=== PATIENT | male | born 1970 | race Caucasian/White ===

== ENCOUNTER → 2016-12-09 | Outpatient (CLI) | payer BC ==
[2016-12-09 15:22] LABS: ALT/SGPT 31 U/L (12-78); AST/SGOT 28 U/L (15-37); BLOOD UREA NITROGEN 12 mg/dl (7-18); BUN/CREATININE RATIO 12.2 (10-20); CALCIUM 9.1 mg/dl (8.5-10.1); CARBON DIOXIDE 24 mmol/L (21-32); CHLORIDE 105 mmol/L (98-107); CHOLESTEROL 226 mg/dl (0-200); CREATININE 0.94 mg/dl (0.60-1.40); GLUCOSE 148 mg/dl (70-99); POTASSIUM 3.8 mmol/L (3.5-5.1); SODIUM 140 mmol/L (136-145); TRIGLYCERIDES 472 mg/dl (0-150)
[2016-12-09 15:31] LABS: ALB/GLOB RATIO 1.5 (0.9-2); ALKALINE PHOSPHATASE 95 U/L (45-117); CHOLESTEROL/HDL RATIO 7.1; HDL CHOLESTEROL 32 mg/dl
[2016-12-10 07:08] LABS: ESTIMATED AVERAGE GLUCOSE 143 mg/dl; HA1C FLAG Normal (Normal)
--- NOTE | 2016-12-18 09:46 | CODING QUERY MEDICAL NECESSITY ---
SUPPORTING DIAGNOSIS NEEDED Mary YANG, A supporting diagnosis is required for the test/procedure performed on this patient in order for us to be reimbursed by the patient's insurance. Please provide a supporting diagnosis for the following test/procedure listed below next to the test name along with your signature. *If there is no additional diagnosis for this patient that would support the following test/procedure please document that below next to the test/procedure. Test(s)/Procedure(s) that require a supporting diagnosis: * ([id number]) VITAMIN D ASSAY DIAGNOSIS: DATE OF SERVICE: 12/09/16 Provider Signature: Date: Thank you [facility] Information Management Once completed, please kindly fax back to [phone] For questions please call [phone]
== END | disposition home or self-care (01) ==
LOC: C.LAB1850 13:34
PROVIDERS: ATTEND Physician Assistant
DX: E03.9 Hypothyroidism, unspecified (principal); E10.65 Type 1 diabetes mellitus with hyperglycemia; E55.9 Vitamin D deficiency, unspecified

== ENCOUNTER 2023-02-02 17:05 | Inpatient (IN) ==
[2023-02-02] MEDS ORDERED: SODIUM CHLORIDE 0.9% 1,000 ML IV SCH (17:30)
--- NOTE | 2023-02-02 17:48 | XRay Report ---
XR chest 1V portable CLINICAL HISTORY: weakness COMPARISON STUDY: No previous studies for comparison. FINDINGS: Lung volumes are normal. Lungs are clear. There is no pneumothorax or pleural effusion. Car diac size is normal. Mediastinal contours are normal. There is no evidence for pulmonary edema. IMPRESSION: No acute cardiopulmonary findings. ACT 112: Negative or not required by law. Electronically signed by: Ebenezer Blackwood M.D. 02/02/2023 5:47 PM
[2023-02-02 18:13] LABS: Basophils # (auto) 0.02 K/uL (0.00-0.20); Basophils % (auto) 0.5 %; Eosinophils # (auto) 0.05 K/uL (0.00-0.50); Eosinophils % (auto) 1.1 %; Hematocrit (blood only) 35.4 % (42.0-52.0); Hemoglobin 12.3 g/dl (14.0-18.0); Immature Granulocytes # (auto) 0.08 K/uL (0.01-0.20); Immature Granulocytes % (auto) 1.8 %; Lymphocytes # (auto) 0.95 K/uL (1.20-3.40); Lymphocytes % (auto) 21.6 %; Mean Corpuscular Hemoglobin 35.2 pg (25.0-34.0); Mean Corpuscular Hgb Conc 34.7 g/dL (32.0-36.0); Mean Corpuscular Volume 101.4 fL (80.0-100.0); Mean Platelet Volume 10.5 fL (9.4-12.4); Monocytes # (auto) 0.47 K/uL (0.11-0.59); Monocytes % (auto) 10.7 %; Neutrophils # (auto) 2.83 K/uL (1.40-6.50); Neutrophils % (auto) 64.3 %; Platelet Count 266 K/uL (130-400); RDW Coefficient of Variation 14.6 % (11.5-14.5); RDW Standard Deviation 54.2 fL (36.4-46.3); Red Blood Count 3.49 M/uL (4.70-6.10)
[2023-02-02 18:28] LABS: Albumin Globulin Ratio 1.4 (0.9-2); Albumin Level 4.1 gm/dl (3.4-5.0); BUN Creatinine Ratio 9.5 (10-20); Bilirubin,Total 1.3 mg/dl (0.2-1.0); Creatinine Clr Calc Pharmacy 128.3 ml/min; Est GFR (Non-African American) 99.3 ml/min; Magnesium 2.1 mg/dl (1.7-2.4); Total Protein 7.1 gm/dl (6.0-8.3)
[2023-02-02 18:44] LABS: Thyroid Stimulating Hormone 0.129 uIu/ml (0.300-4.500)
--- NOTE | 2023-02-02 19:16 | Emergency Department Note ---
Impression & Plan Generalized seizure ED Provider Note NAME: TARA VELARDE AGE: 52 SEX: Male INFORMANT: Patient and family ED PROVIDER(S): Darek Mclaughlin MD CHIEF COMPLAINT: Seizure PLAN: Disposition: Admitted Outpatient prescription management: none Referral: None MEDICAL DECISION MAKING: Patient had what sounds like a seizure-like episode. He was placed in seizure precautions. Blood work and imaging ordered. His CBC and chemistry panel were unremarkable. I did review his imaging from yesterday. CT and CT angiography were unremarkable. ED physician yesterday recommended admission however patient declined. He was ordered CT imaging here today. He had a nonfocal neurologic examination. I did consult with neurology, Dr. Zhou and he recommended an IV Keppra load. He agreed with admitting the patient and getting an MRI and EEG with neurology consult for tomorrow. Discussed with hospital pharmacist. Patient was given 2 g of IV Keppra. He was also hydrated. Consultation was made with the hospitalist service. Case discussed and diagnostics were reviewed. Patient was admitted for further management. Care/management discussed with: Discussed with hospital pharmacist as well as manager transplant. Level of care consideration(s): After review of the information above and other included data, I feel the patient requires escalation of care to admission Triage Nursing notes: reviewed and agree them. Vital Signs: reviewed and remarkable for no significant abnormalities Additional History obtained from: Family. They describe a generalized tonic- clonic like activity. Chronic Medical/Social Conditions affecting care: Diabetes Prior/ Outside/ External records reviewed: none Differential Diagnosis: Epilepsy, infection, hypoglycemia, electrolyte abnormalities, cardiac sources, intracerebral event, trauma, toxicologic, neurologic, syncope, as well as other pathologies. Diagnostics, independently interpreted by me: ECG: twelve-lead ECG reveals a normal sinus rhythm at [address] elevation or depression. No PACs or PVCs Cardiac Monitoring: Cardiac monitoring ordered by me: The patient was placed on continuous cardiac monitoring and observed. It revealed a normal sinus rhythm at 83 beats per minute without ectopy or evidence of dysrhythmia. Medical decision rules: none Imaging studies: Head CT: A noncontrast CT scan of the head was performed and was negative for tumor, fracture, intracranial hemorrhage, or other acute pathology. HPI: 52 year old Male arrives for evaluation of seizure-like episode. Per the family patient had a shaking episode earlier this morning. But the patient does not remember this. He then had an episode of shaking this evening. Exact duration was not noted by family. He did have about 5 to 10 minutes of confusion afterwards. Patient feels back to normal at this time. He was seen yesterday and had an evaluation for right-sided weakness that resolved. CT work-up at that time was negative. He was recommended for admission and further evaluation however patient declined. Patient is agreeable to admission at this time. Pt denies tongue biting, incontinence, headache, fevers, chills, diaphoresis, visual changes, neck pain, chest pain, breathing difficulties, nausea, vomiting, abdominal pain, back pain, melena, hematochezia, urinary symptoms, numbness, weakness, lymphadenopathy, rash, or other complaints. PAST MEDICAL HISTORY: See Below, diabetes PAST SURGICAL HISTORY: See Below, SOCIAL HISTORY: See Below, non-smoker HOME MEDICATIONS: See Below ALLERGIES: See Below VITALS: See Below PHYSICAL EXAMINATION: GENERAL: Awake, alert, well-appearing, in no distress HENT: Normocephalic, atraumatic. Oropharynx unremarkable. Tongue normal. EYES: Normal conjunctiva. Sclera non-icteric.PERRLA. EOMI. NECK: Inspection normal. Non-tender. Supple. No nuchal rigidity. FROM. No masses. RESPIRATORY: Clear to auscultation. No wheezes. No rales. Normal respiratory effort. CARDIAC: Normal rate. Normal rhythm. No murmurs. No rubs. Extremities warm and well perfused. Pulses equal. No JVD. GI: Soft, non-distended. No tenderness to palpation. No rebound or guarding. No masses. RECTAL: Deferred. MUSCULOSKELETAL: Atraumatic. Chest examination reveals no tenderness. The back is symmetrical on inspection without obvious abnormality. There is no CVA tenderness to palpation. No joint edema. LOWER EXTREMITIES: Calves are equal size bilaterally and non-tender. No edema. No discoloration. NEURO: Normal sensorium. No sensory or motor deficits noted. Normal rapid alternating movements. No drift. Speech normal. SKIN: No rash or jaundice noted. PROCEDURES: none CRITICAL CARE: none OBSERVATION NOTE: none Past Med/Surg History Medical History Diabetes Social History Smoking Status: Never smoker Preferred Language: Colombian Feels Safe at Home: Yes Allergies Allergies Allergy/AdvReac Type Severity Reaction Status Date / Time No Known Allergies Allergy Intermediate Verified 09/07/03 09:20 Home Meds Home Medications Medication Instructions Recorded Confirmed atorvastatin 20 mg tablet 20 mg PO DAILY 02/01/23 02/01/23 cimetidine 400 mg tablet 400 mg PO BID PRN Heartburn 02/01/23 02/01/23 insulin glargine 100 unit/mL (3 0 - 80 unit subcut HS 02/01/23 02/01/23 mL) subcutaneous pen (Lantus Solostar U-100 Insulin) insulin glulisine U-100 100 1 sliding scale dose subcut UD 02/01/23 02/01/23 unit/mL subcutaneous pen (Apidra SoloStar U-100 Insulin) levothyroxine 150 mcg tablet 150 mcg PO DAILYBB 02/01/23 02/01/23 (Synthroid) Previous Rx's Medication Instructions Recorded amoxicillin 875 mg-potassium 1 tab PO BID #20 tabs 02/01/23 clavulanate 125 mg tablet Results & Data (ED) Vital Signs Vital Signs - 24 hr 02/02/23 17:11 02/02/23 18:24 Temperature 36.9 C Temperature Source Oral Pulse Rate 82 83 Respiratory Rate 18 Respiratory Effort / Characteristics Non-Labored Spontaneous Respiratory Depth Normal Respiratory Pattern Regular Blood Pressure 139/81 Blood Pressure Mean 100 Pulse Oximetry 98 Oxygen Delivery Method Room Air Sepsis Recent Fever Within 48 Hours No Sepsis New/Unexplained Change in Mental Status N/A Sepsis Action Taken by Nursing No Action Required Laboratory Data 02/02/23 17:38 02/02/23 17:38 Lab Results 02/02/23 02/02/23 Range/Units 17:38 19:05 WBC 4.40 L (4.8-10.8) K/ul RBC 3.49 L (4.70-6.10) M/uL Hgb 12.3 L (14.0-18.0) g/dl Hct 35.4 L (42.0-52.0) % MCV 101.4 H (80.0-100.0) fL MCH 35.2 H (25.0-34.0) pg MCHC 34.7 (32.0-36.0) g/dL RDW Std Deviation 54.2 H (36.4-46.3) fL RDW Coeff of Molly 14.6 H (11.5-14.5) % Plt Count 266 (130-400) K/uL MPV 10.5 (9.4-12.4) fL Immature Gran % (Auto) 1.8 % Neut % (Auto) 64.3 % Lymph % (Auto) 21.6 % Floyd % (Auto) 10.7 % Eos % (Auto) 1.1 % Baso % (Auto) 0.5 % Neut # (Auto) 2.83 (1.40-6.50) K/uL Lymph # (Auto) 0.95 L (1.20-3.40) K/uL Floyd # (Auto) 0.47 (0.11-0.59) K/uL Eos # (Auto) 0.05 (0.00-0.50) K/uL Baso # (Auto) 0.02 (0.00-0.20) K/uL Immature Gran # (Auto) 0.08 (0.01-0.20) K/uL Sodium 139 (136-145) mmol/L Potassium 4.0 (3.5-5.1) mmol/L Chloride 107 (98-107) mmol/L Carbon Dioxide 24 (21-32) mmol/L Anion Gap 8 (3-11) BUN 8 (6-23) mg/dl Creatinine 0.84 (0.6-1.4) mg/dl Est Cr Clr Drug Dosing 128.3 ml/min Est GFR ( Amer) 115.0 ml/min Est GFR (Non-Af Amer) 99.3 ml/min BUN/Creatinine Ratio 9.5 L (10-20) Glucose 92 (70-99(Fasting)) mg/dl Calcium 9.0 (8.6-10.3) mg/dl Magnesium 2.1 (1.7-2.4) mg/dl Total Bilirubin 1.3 H (0.2-1.0) mg/dl AST 24 (13-39) U/L ALT 12 (7-52) U/L Alkaline Phosphatase 104 (34-104) U/L Total Creatine Kinase 155 (30-223) U/L Troponin I High Sens 8.0 (0-20) pg/ml Total Protein 7.1 (6.0-8.3) gm/dl Albumin 4.1 (3.4-5.0) gm/dl Globulin 3.0 (2.5-4.0) gm/dl Albumin/Globulin Ratio 1.4 (0.9-2) TSH 0.129 L (0.300-4.500) uIu/ml Free T4 1.31 (0.61-1.60) ng/dl Urine Color Yellow Urine Appearance Clear (Clear) Urine pH 5.5 (4.5-7.5) Ur Specific [place]rose 1.011 (1.000-1.030) Urine Protein Negative (Negative) Urine Glucose (UA) Negative (Negative) Urine Ketones Trace H (Negative) Urine Blood Negative (Negative) Urine Nitrite Negative (Negative) Urine Bilirubin Negative (Negative) Urine Urobilinogen Negative (Negative) Ur Leukocyte Esterase Negative (Negative) Administered Medications Sodium Chloride (Nss) 1,000 mls @ 125 mls/hr IV .Q8H LIZ Stop: 02/03/23 01:29 Last Admin: 02/02/23 19:08 Dose: 125 mls/hr Documented By: [facility] [place] Imaging Data Radiologist's Impression: Chest X-Ray 02/02/23 17:23 XR chest 1V portable CLINICAL HISTORY: weakness COMPARISON STUDY: No previous studies for comparison. FINDINGS: Lung volumes are normal. Lungs are clear. There is no pneumothorax or pleural effusion. Cardiac size is normal. Mediastinal contours are normal. There is no evidence for pulmonary edema. IMPRESSION: No acute cardiopulmonary findings. ACT 112: Negative or not required by law. Electronically signed by: Ebenezer Blackwood M.D. 02/02/2023 5:47 PM Discharge Plan Visit Data Chief Complaint: Seizure ED Provider: Darek Mclaughlin Discharge Problem: Generalized seizure Forms Stand Alone Forms: My [facility] [employer] Prescriptions Prescriptions: No Action levothyroxine [Synthroid] 150 mcg tablet 150 mcg PO DAILYBB insulin glargine [Lantus Solostar U-100 Insulin] 100 unit/mL (3 mL) insulin pen 0 - 80 unit SUBCUT HS Apidra SoloStar U-100 Insulin 100 unit/mL insulin pen 1 sliding scale dose SUBCUT UD Rx Instructions: up to 100 units daily cimetidine 400 mg tablet 400 mg PO BID PRN (Reason: Heartburn) atorvastatin 20 mg tablet 20 mg PO DAILY amoxicillin-pot clavulanate 875-125 mg tablet 1 tab PO BID Qty: 20 0RF Referrals Referrals: Rosalinda Alva MD [Primary Care Provider] -
[2023-02-02 19:20] LABS: T4 Free Thyroxine 1.31 ng/dl (0.61-1.60)
[2023-02-02 19:29] LABS: Appearance Urine Clear (Clear); Bilirubin Urine Negative (Negative); Blood Urine Negative (Negative); Color Urine Yellow; Glucose Urine UA Negative (Negative); Ketones Urine Trace (Negative); Leukocyte Esterase Urine Negative (Negative); Nitrite Urine Negative (Negative); Protein Urine Negative (Negative); Specific Gravity Urine 1.011 (1.000-1.030); Urobilinogen Urine Negative (Negative); pH Urine 5.5 (4.5-7.5)
--- NOTE | 2023-02-02 19:45 | CT Scan Report ---
CT OF THE HEAD WITHOUT CONTRAST CLINICAL HISTORY: seizure like episode COMPARISON STUDY: Head CT and CTA of the head February 01, 2023. CT DOSE: 547.75 mGy.cm TECHNIQUE: Helical axial images of the head were obtained without IV contrast. Automated exposure con trol was utilized for the study. A dose lowering technique was utilized adhering to the principles o f ALARA. FINDINGS: No acute intracranial hemorrhage, midline shift or mass effect is present. The ventricular system is unremarkable. The basal cisterns are patent. No extra-axial collections are present. There are no findings to suggest acute dural sinus thrombosis or acute territorial infarct. No acute calvar ial fracture is present. Right maxillary sinus air-fluid level is noted. There is moderate mucosal th ickening of the maxillary and ethmoid sinuses. This was shown on prior CT. IMPRESSION: 1. No acute intracranial findings. No change in appearance of the brain. 2. Paranasal sinus mucosal thickening and air-fluid levels, as above. ACT 112: Negative or not required by law. Electronically signed by: Ebenezer Blackwood M.D. 02/02/2023 7:43 PM
--- NOTE | 2023-02-02 20:30 | History & Physical Report ---
Date of Service February 02, 2023 Assessment & Plan (1) Seizure-like activity: Plan: 52 year old male admitted for seizure like activity. Seizure-like activity: -2 episodes of seizure-like activity with R sided weakness post acitity. -Patient without urinary incontinence or post-ictal state with cognition. -Imaging of head and neck unremarkable except for sinusitis. -Blood work unremarkable. -New onset of seizures with unknown cause, questionable hypoglycemic vs infectious vs other etiology. -ER discussed with Neurology - Mitchell loaded with 2gm in the ER. Seizure precautions. MRI and EEG ordered. -No signs of rhythm abnormalities, however will monitor on telemetry. Sinusitis: -Cold symptoms for 1 week with sinusitis on CT. -Started on Augmentin BID, will continue for 7 days. Hyperlipidemia: -continue home atorvastatin 20mg. Hypothyroidism: -TSH low but T4 in normal range. Continue home levothyroxine 150mcg. T2DM: -Continue basal dose of 75U daily (as 37U BID) as well as SSI. -ACHS, check A1c in the AM. F/E/N/GI: T2DM carb consistent. DVT Prophylaxis: Lovenox 40mg sq daily. Code status: Full Dispo: Telemetry. (2) Sinusitis: (3) Hyperlipidemia: (4) Hypothyroidism: (5) Type 2 diabetes mellitus: History of Present Illness Chief Complaint: Seizure like activity Primary Care Provider: Rosalinda Alva MD Shelby is a 52 year old male w/ PmHx hyperlipidemia, hypothyroidism, T2DM coming in for seizure like activity. Patient was previously seen yesterday for R sided weakness when waking up that had dissipated by the time he got to the emergency department. He had CT head and CTA head and neck which was negative for any acute processes other than evidence for sinus infection. He had been offered to be admitted for MRI and further workup however thing had resolved and he chose to follow up outpatient. After returning home he states that when he was asleep someone with him in his room had noticed he had seizure like activity while sle eping where he had diffuse body shaking. After the shaking the patient woke up and had R sided weakness again. Neither of the instances did he wake up with urinary incontinence but he says he woke up feeling like he has to go to the bathroom. The first time he did not realize he had R sided weakness and had gotten up to go to the bathroom but fell and couldn't make it in time. He has not had a seizure while awake, only while asleep. He does not have any past history of seizures. He states that he checks his glucose at home and he will be able to feel it when it drops down as low as 60's. He was also found to have sinus infection on CT scan yesterday, says he has had congestion, postnasal drip, cough for the past week. He denies any fevers or chills. In the ER Hgb 12.3, CMP with T bili 1.3, no other abnormalities, TSH 0.129, Free T4 1.31, UA negative, trace ketones. Head CT, CTA head and neck from 02/01 negative except for miller sinus disease and dental caries. CXR negative for acute processes. CT head from today no change from previous. Allergies Allergy/AdvReac Type Severity Reaction Status Date / Time TOBACCO SMOKE Allergy HIVES AND Uncoded 02/02/23 19:46 RESPIRATORY DECLINE Home Medications Medication Instructions Recorded Confirmed Type amoxicillin 875 mg-potassium 1 tab PO BID #20 tabs 02/01/23 02/02/23 Rx clavulanate 125 mg tablet atorvastatin 20 mg tablet 20 mg PO DAILY 02/01/23 02/02/23 History cimetidine 400 mg tablet 400 mg PO BID PRN Heartburn 02/01/23 02/02/23 History insulin glargine 100 unit/mL (3 0 - 80 unit subcut HS 02/01/23 02/02/23 History mL) subcutaneous pen (Lantus Solostar U-100 Insulin) insulin glulisine U-100 100 1 sliding scale dose subcut UD 02/01/23 02/02/23 History unit/mL subcutaneous pen (Apidra SoloStar U-100 Insulin) Unknown Allergy Med 1 tab PO DAILY 02/02/23 02/02/23 History levothyroxine 150 mcg tablet 150 mcg PO QAM 02/02/23 02/02/23 History (Synthroid) Past Med/Surg History Medical History Diabetes Social History Smoking Status: Never smoker Preferred Language: Amharic Feels Safe at Home: Yes Review of Systems Review of Systems: As per HPI. Physical Exam Constitutional: WD/WN, vitals as above Eyes: PERRL, conjunctivae normal, anicteric sclerae Respiratory: normal respiratory effort, lungs clear to auscultation Cardiovascular: RRR, no murmur, no edema Gastrointestinal (Abdomen): normal bowel sounds, soft, nontender, no hepatosplenomegaly Musculoskeletal: no cyanosis or clubbing, extremities motor strength 5/5 Skin: no rashes, warm and dry Neurologic: PERRL, EOMI, accommodation nl, no face palsy, no dysarthria Psychiatric: A+Ox3, euthymic affect Results & Data Results & Data Vital Signs (Past 12 Hours) Vital Signs Temp Pulse Resp BP Pulse Ox O2 Del Method 02/02/23 18:24 83 02/02/23 17:11 36.9 C 82 18 139/81 98 Room Air Code Status & VTE Plan VTE Prophylaxis Plan VTE Prophylaxis will be ordered: Yes Resident Activity Tracking Resident Involvement: Resident Care Provided Care Provided: Adult Hospital Medicine (2) Sinusitis Chronicity: unspecified Sinusitis location: unspecified location Qualified Code(s): J32.9 - Chronic sinusitis, unspecified
[2023-02-02] MEDS ORDERED: GLUCOSE 10 TAB/TUBE PO PRN (21:13)
[2023-02-02] MEDS ORDERED: GLUCOSE 40% GEL 15 GM TUBE PO PRN (21:13)
[2023-02-02] MEDS ORDERED: POLYETHYLENE (MIRALAX) 17 GM PACK PO PRN (21:13)
[2023-02-02] MEDS ORDERED: DEXTROSE 50% 50 ML SYRINGE IV PRN (21:13)
[2023-02-02] MEDS ORDERED: ENOXAPARIN INJ 40 MG/0.4 ML SYR SQ SCH (21:13)
[2023-02-02] MEDS ORDERED: ACETAMINOPHEN 325 MG TAB PO PRN (21:13)
[2023-02-02] MEDS ORDERED: GLUCAGON FOR INJ 1 MG VIAL SQ PRN (21:13)
[2023-02-02] MEDS ORDERED: CARBOHYDRATES FOR HYPOGLYCEMIA PO PRN (21:13)
[2023-02-02] MEDS ORDERED: ONDANSETRON INJ 2 MG/ML 2 ML VIAL IV PRN (21:13)
[2023-02-02] MEDS: LANTUS PER UNIT CHARGE SQ SCH (22:19)
[2023-02-02] MEDS: AMOXICILLIN/CLAVULANATE 875 MG TAB PO SCH (22:20)
[2023-02-02] MEDS: INSULIN ASPART PER UNIT CHARGE SC SCH (22:57)
[2023-02-03] MEDS: INSULIN ASPART PER UNIT CHARGE SC SCH ×4 (00:26→18:52)
[2023-02-03] MEDS ORDERED: LEVOTHYROXINE SODIUM 150 MCG TABLET PO SCH (06:30)
[2023-02-03 06:47] LABS: Basophils # (auto) 0.02 K/uL (0.00-0.20); Basophils % (auto) 0.4 %; Eosinophils # (auto) 0.18 K/uL (0.00-0.50); Eosinophils % (auto) 3.2 %; Hematocrit (blood only) 31.8 % (42.0-52.0); Hemoglobin 10.9 g/dl (14.0-18.0); Immature Granulocytes # (auto) 0.06 K/uL (0.01-0.20); Immature Granulocytes % (auto) 1.1 %; Lymphocytes # (auto) 2.39 K/uL (1.20-3.40); Lymphocytes % (auto) 42.9 %; Mean Corpuscular Hgb Conc 34.3 g/dL (32.0-36.0); Mean Corpuscular Volume 102.3 fL (80.0-100.0); Mean Platelet Volume 10.5 fL (9.4-12.4); Monocytes # (auto) 0.81 K/uL (0.11-0.59); Monocytes % (auto) 14.5 %; Neutrophils # (auto) 2.11 K/uL (1.40-6.50); Neutrophils % (auto) 37.9 %; Platelet Count 243 K/uL (130-400); RDW Coefficient of Variation 14.6 % (11.5-14.5); RDW Standard Deviation 55.1 fL (36.4-46.3); Red Blood Count 3.11 M/uL (4.70-6.10); White Blood Count 5.57 K/ul (4.8-10.8)
[2023-02-03 07:57] LABS: Estimated Average Glucose 160 mg/dl; Hemoglobin A1C 7.2 % (4.5-5.6)
--- NOTE | 2023-02-03 08:01 | Electroencephalogram ---
EEG Procedure Note Date of Service February 03, 2023 Start / End Times Start Time: 618 End Time: [address] Zafar History 52-year-old with seizure-like activity twice in the last 48 hours Home Medication List Medication Instructions Recorded Confirmed Type amoxicillin 875 mg-potassium 1 tab PO BID #20 tabs 02/01/23 02/02/23 Rx clavulanate 125 mg tablet atorvastatin 20 mg tablet 20 mg PO DAILY 02/01/23 02/02/23 History cimetidine 400 mg tablet 400 mg PO BID PRN Heartburn 02/01/23 02/02/23 History insulin glargine 100 unit/mL (3 0 - 80 unit subcut HS 02/01/23 02/02/23 History mL) subcutaneous pen (Lantus Solostar U-100 Insulin) insulin glulisine U-100 100 1 sliding scale dose subcut UD 02/01/23 02/02/23 History unit/mL subcutaneous pen (Apidra SoloStar U-100 Insulin) Unknown Allergy Med 1 tab PO DAILY 02/02/23 02/02/23 History levothyroxine 150 mcg tablet 150 mcg PO QAM 02/02/23 02/02/23 History (Synthroid) Inpatient Medication List Amoxicillin/Clavulanate Potassium (Amoxicillin/Clavulanate 875 Mg Tab) 1 tab PO BID [facility]; Protocol Stop: 02/09/23 21:12 Last Admin: 02/02/23 22:20 Dose: 1 tab Documented By: DANIEL Enoxaparin Sodium (Enoxaparin Inj 40 Mg/0.4 Ml Syr) 40 mg SQ Q24H [facility] Stop: 03/04/23 21:12 Last Admin: 02/02/23 22:53 Dose: 40 mg Documented By: DANIEL Insulin Aspart (Insulin Aspart Per Unit Charge) 0 units SC ACHS LIZ Stop: 03/04/23 21:12 Last Admin: 02/03/23 00:26 Dose: 9 units Documented By: TORY Co-signed By: SONY Admin: 02/02/23 22:57 Dose: Not Given Documented By: DANIEL Co-signed By: Insulin Glargine (Lantus Per Unit Charge) 37 units SQ BID LIZ Stop: 03/04/23 21:12 Last Admin: 02/02/23 22:19 Dose: 37 units Documented By: DANIEL Co-signed By: ALPESH Levothyroxine Sodium (Levothyroxine Sodium 150 Mcg Tablet) 150 mcg PO DAILYBB LIZ Stop: 03/05/23 06:29 Last Admin: 02/03/23 06:38 Dose: Not Given Documented By: TORY Discontinued Medications Sodium Chloride (Nss) 1,000 mls @ 125 mls/hr IV .Q8H LIZ Stop: 02/03/23 01:29 Last Infusion: 02/03/23 06:21 Dose: Infused Documented By: Admin: 02/02/23 19:08 Dose: 125 mls/hr Documented By: DANIEL Levetiracetam 2,000 mg/ Sodium (Chloride) 270 mls @ 999 mls/hr IV NOW STA Stop: 02/02/23 19:20 Last Infusion: 02/02/23 20:52 Dose: Infused Documented By: Admin: 02/02/23 19:40 Dose: 999 mls/hr Documented By: DANIEL Description This is a 21 electrode EEG with a single channel dedicated to limited EKG. The electrodes were placed in accordance with the International 10-20 system. Interpretation The predominant background activity consists of a very well modulated 10 Hz activity, of up to 50 mV in amplitude, seen symmetrically distributed over the posterior head regions bilaterally, spreading anteriorly symmetrically. This activity attenuates with eye-opening and other alerting procedures. Photic stimulation was performed and elicited no change in the background activity and no abnormal responses were seen. Hyperventilation was not performed. A mild amount of muscle and movement artifact activity contaminated the recording, yet did not hinder interpretation to any significant degree. Throughout the waking portion of the recording, no focal abnormalities, abnormal slow activity, or potentially epileptogenic discharges were seen. The patient entered the drowsy state with no further activation. In summary, this EEG was normal during wakefulness and drowsiness. No focal abnormalities, potentially epileptogenic discharges, or abnormal slow activity were seen. Clinical Correlation The abscence of potentially epileptogenic activity does not exclude a seizure disorder, since interictally, EEGs can be normal. Clinical correlation is required. [facility] EEG Procedure Codes Indication for Procedure (1) Seizure-like activity: Neurology Neurology: 61329 EEG include record awake & drowsy
[2023-02-03 08:15] LABS: Albumin Level 3.6 gm/dl (3.4-5.0); Bilirubin,Total 0.9 mg/dl (0.2-1.0); Calcium 8.3 mg/dl (8.6-10.3)
[2023-02-03 08:39] LABS: Albumin Globulin Ratio 1.6 (0.9-2); Creatinine Clr Calc Pharmacy 118.5 ml/min; Est GFR (African American) 110.3 ml/min; Est GFR (Non-African American) 95.2 ml/min; Globulin 2.3 gm/dl (2.5-4.0); Total Protein 5.9 gm/dl (6.0-8.3)
--- NOTE | 2023-02-03 08:49 | Neurology Consultation ---
Date of Consultation February 03, 2023 Assessment & Plan (1) Seizure-like activity: (2) Generalized seizure: (3) Type 2 diabetes mellitus: (4) Sinusitis: Plan This patient had 2 episodes which were likely seizures followed by postictal state giving right-sided weakness and some speech issues. Neurologically he is back to normal with no focal findings, meningeal signs, encephalopathy. The etiology of the events is likely related to glucose shifts given his diabetes. Other etiologies need to be considered but no other metabolic problem was identified. Does have maxillary sinusitis bilaterally with air-fluid levels on CT. This Infectious irritation could lower his seizure threshold as well. He is currently on Augmentin. Recommendations: 1. MRI of the brain with and without contrast. 2. Continue levetiracetam 500 mg p.o. b.i.d.-continue this until we see him in clinic. 3. We can follow-up in Neurology Clinic ([place] in 2-3 weeks). Overall, I spent a total of 75 minutes with this case including review of records, review of CT films, direct evaluation of the patient at bedside, report generation, and discussion of the case with the patient, RN, and Dr. Mckoy, at bedside including differential diagnosis and treatment options. History of Present Illness Reason for Consultation: Patient is a 52-year-old, who I was asked to see at the request Dr. Zafar, for neurologic evaluation regarding seizures. Requesting Physician: Dr. Zafar Attending Physician: Horace Mckoy History of Present Illness This patient has a 20-30 year history of diabetes on insulin. He also has hypothyroidism on Synthroid. The patient has some sinus congestion recently and on the morning of February 01 he woke at 5:00 a.m. not be able to move his right side. He had no pain or headache and did not feel confused. He did not attempt to speak. He went back to bed and did not wake up until the afternoon (which is typical for him). When he woke, he was still weak on the right side. There may have been some speech issues according to a family member but he himself did not think he was speaking differently. He arrived to the emergency room February 01 but his neuro exam was back to normal by the time he got here. Blood pressure was 161/84. Neurologic examination and speech were normal. CBC and Chem profile were unremarkable except for mildly elevated MCV. Alk-phos was 124. CT scan of the head was unremarkable, except for sinusitis. CT angiography of the head and neck were normal with no vascular anomalies or stenoses. He was initiated on Augmentin 875 twice a day for his sinusitis. He decided to go back home and not be admitted. The patient went to bed at 3:00 a.m. on February 02. Family members were staying with him. He apparently woke sometime in the afternoon but does not really remember this. Apparently he was shaking but did not bite his tongue or have urinary incontinence. By the time he came to the emergency room February 02 at 5:11 p.m., blood pressure was 139/81, pulse 82 and regular, temperature 36.9, respiratory rate 18, and O2 saturation 98%. His neuro examination was normal with no focal findings or weakness or speech problems. He had no meningeal signs or encephalopathy. CBC and Chem profile were again unremarkable and TSH was 0.129. Urinalysis was unremarkable as was chest x-ray. Because of his history, he was given 2 g of Keppra IV. This morning an EEG was obtained and showed no abnormalities, potentially epileptogenic discharges, or focal abnormalities (see separate report). The patient feels back to baseline with no weakness, numbness, fatigue, he adaches, speech problems, vision issues, or confusion. Allergies Allergy/AdvReac Type Severity Reaction Status Date / Time TOBACCO SMOKE Allergy HIVES AND Uncoded 02/02/23 19:46 RESPIRATORY DECLINE Home Medications Medication Instructions Recorded Confirmed Type amoxicillin 875 mg-potassium 1 tab PO BID #20 tabs 02/01/23 02/02/23 Rx clavulanate 125 mg tablet atorvastatin 20 mg tablet 20 mg PO DAILY 02/01/23 02/02/23 History cimetidine 400 mg tablet 400 mg PO BID PRN Heartburn 02/01/23 02/02/23 History insulin glargine 100 unit/mL (3 0 - 80 unit subcut HS 02/01/23 02/02/23 History mL) subcutaneous pen (Lantus Solostar U-100 Insulin) insulin glulisine U-100 100 1 sliding scale dose subcut UD 02/01/23 02/02/23 History unit/mL subcutaneous pen (Apidra SoloStar U-100 Insulin) Unknown Allergy Med 1 tab PO DAILY 02/02/23 02/02/23 History levothyroxine 150 mcg tablet 150 mcg PO QAM 02/02/23 02/02/23 History (Synthroid) Patient History Medical History Diabetes Family History Mother Carcinoid syndrome Social History (Updated 02/03/23 @ 08:51 by Umair Almanzar MD) Smoking Status: Never smoker Hx Alcohol Use: No Hx Substance Use: No Preferred Language: Spanish Communication Ability: Effective 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 Required: No Beliefs That Will Affect Care: None Current Living Situation: Alone current occupational status: previously employed 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 Feels Safe at Home: Yes Assistive Devices: Glasses Review of Systems Constitutional: no fever, no fatigue and no weakness Eyes: no diplopia, no eye pain and no worsening vision Ear, Nose, Mouth, Throat: no ear pain, no tinnitus, no hearing loss, no dizziness, no snoring, no hoarseness and no dysphagia Respiratory: no cough and no dyspnea Cardiovascular: no chest pain, no palpitations and no lightheadedness Gastrointestinal: no abdominal pain, no nausea and no vomiting Musculoskeletal: no back pain, no neck pain, no radicular pain, no joint pain and no myalgia Integumentary: no rash and no lesions Neurologic: no gait abnormality, no localized weakness, no generalized weakness, no tingling, no numbness, no tremor(s), no abnormal movements, no headache(s), no abnormal speech, no confusion and no memory loss Psychiatric: no depression, no irritability, no anxiety, no difficulty concentrating, no confusion and no hallucinations Endocrine: no fatigue and no flushing Hematologic / Lymphatic: no easy bleeding and no easy bruising Allergy / Immunological: no urticaria and no problem reported Exam (Neuro) Physical Exam: The patient is right-handed. The patient is awake, alert, and attentive. Speech is normal without any aphasia or dysarthria. The patient can name objects, repeat phrases, and has normal spontaneous speech. Mentation and thought processes are intact, with orientation to person, place and time, and normal fund of knowledge. Attention and concentration are normal. Mood and affect are normal and appropriate. General appearance and grooming are normal. Short and long-term memory are intact. The discs are sharp with positive venous pulsations bilaterally. There are no exudates, hemorrhages, or blood vessel changes seen. Pupils are 4 mm bilaterally and reactive to light. Extraocular eye muscles are intact without nystagmus. Visual acuity and visual east seem normal grossly to confrontation. There are no deficits to sensation in the face in all 3 distributions of the fi fth cranial nerve bilaterally. Corneal reflexes are positive bilaterally. Facial strength and symmetry was normal bilaterally. Hearing seems normal bilaterally. Palate moves well without asymmetry. There is normal sternocleidomastoid and trapezius (shoulder shrug) strength bilaterally. Tongue is midline with good strength bilaterally. Neck has a full range of motion without discomfort. There are no cervical bruits bilaterally. There are no cranial or ocular bruits. Heart is without murmur. There is a regular rhythm and rate. Cervical, thoracic, and lumbar spine are nontender to palpation. Gait is narrow based, with good arm swing, turns, and stance. With outstretched arms there is no drift. There are no resting, postural, or action tremors. There is no ataxia with finger to nose testing. There is good facility in the hands. No other abnormal involuntary movements are noted. Motor strength is 5/5 diffusely in the arms bilaterally including deltoids, biceps, triceps, brachioradialis, wrist flexors and extensors, inside wireman, and intrinsic hand muscles. Motor strength is 5/5 diffusely in the legs bilaterally including hip flexors, quadriceps, hamstrings, gastrocnemius, tibialis anterior, tibialis posterior, and Peroneii muscles. Toe extensors are normal and there is good bulk in the extensor digitorum brevis muscles bilaterally. The limbs have good tone without rigidity or spasticity. There is no atrophy noted in the muscles. Muscle bulk is normal, there is no tenderness to palpation, no myotonia to percussion, and no fasciculations seen. Sensory examination is intact to touch and pin throughout all 4 limbs diffusely. Reflexes are 2/4 in the biceps, triceps, brachioradialis, and quadriceps tendons bilaterally. Achilles tendon reflexes are absent bilaterally There is no clonus bilaterally. Toes are downgoing with plantar stimulation bilaterally. Peripheral pulses are present and of normal quality distally in all 4 limbs. There is no peripheral edema noted in the limbs. Results & Data Vital Signs (Past 12 Hours) Vital Signs Pulse Pulse Resp BP BP Pulse Ox O2 Del Method 02/03/23 08:02 82 02/03/23 00:06 84 15 141/79 H 99 Room Air 02/02/23 22:38 81 17 154/73 H 97 Room Air 02/02/23 21:17 86 PG Care Time/CCT Total # of Minutes Spent Total Time Spent with Patient: Total time spent is greater than 50% in coordination of care (as documented) at patient's floor/unit and/or counseling patient: Coding Level of Care Code 34116 INT INP/OBS CARE 3/75MIN Diagnoses Seizure-like activity R56.9 Generalized seizure R56.9 Type 2 diabetes mellitus E11.9 Sinusitis J32.9 Chronicity: unspecified Sinusitis location: unspecified location Time Spent (min) 75 (4) Sinusitis Chronicity: unspecified Sinusitis location: unspecified location Qualified Code(s): J32.9 - Chronic sinusitis, unspecified
[2023-02-03] MEDS ORDERED: ATORVASTATIN 20 MG TAB PO SCH (09:00)
[2023-02-03] MEDS: LANTUS PER UNIT CHARGE SQ SCH (09:46)
[2023-02-03] MEDS: AMOXICILLIN/CLAVULANATE 875 MG TAB PO SCH (10:36)
[2023-02-03] MEDS ORDERED: GADOBUTROL 65ML VIAL IV ONE (16:27)
--- NOTE | 2023-02-03 16:59 | Magnetic Resonance Report ---
MR brain seizure wo/w con CLINICAL HISTORY: seizure TECHNIQUE: Multiplanar and multisequence MR images of the brain were obtained prior to and following administration of gadolinium contrast. Comparison: Comparison is made to CT head 02/02/2023 FINDINGS: No abnormal restricted diffusion is identified. The white matter is unremarkable. The ventricular sys tem is normal in appearance.No mass or abnormal enhancement is seen. There is no mass effect or midli ne shift. There is no evidence of acute intraparenchymal hemorrhage. No extra axial fluid collections are seen. The corpus callosum, pituitary gland, and cerebellar tonsils appear grossly unremarkable. High-resolution images of the temporal lobes do not demonstrate any signal abnormality. Flow voids of the major intracranial arterial vessels are identified. Maxillary sinus thickening is s een. IMPRESSION: No acute abnormality. In particular, no edema in the temporal lobes bilaterally in this postictal pat ient. ACT 112: Negative or not required by law. Electronically signed by: Jesus Manuel Pathak M.D. 02/03/2023 4:57 PM
--- NOTE | 2023-02-03 18:31 | Discharge Summary ---
Date of Service February 03, 2023 Admission HPI Per Admitting Provider Shelby is a 52 year old male w/ PmHx hyperlipidemia, hypothyroidism, T2DM coming in for seizure like activity. Patient was previously seen yesterday for R sided weakness when waking up that had dissipated by the time he got to the emergency department. He had CT head and CTA head and neck which was negative for any acute processes other than evidence for sinus infection. He had been offered to be admitted for MRI and further workup however thing had resolved and he chose to follow up outpatient. After returning home he states that when he was asleep someone with him in his room had noticed he had seizure like activity while sleeping where he had diffuse body shaking. After the shaking the patient woke up and had R sided weakness again. Neither of the instances did he wake up with urinary incontinence but he says he woke up feeling like he has to go to the bathroom. The first time he did not realize he had R sided weakness and had gotten up to go to the bathroom but fell and couldn't make it in time. He has not had a seizure while awake, only while asleep. He does not have any past history of seizures. He states that he checks his glucose at home and he will be able to feel it when it drops down as low as 60's. He was also found to have sinus infection on CT scan yesterday, says he has had congestion, postnasal drip, cough for the past week. He denies any fevers or chills. In the ER Hgb 12.3, CMP with T bili 1.3, no other abnormalities, TSH 0.129, Free T4 1.31, UA negative, trace ketones. Head CT, CTA head and neck from 02/01 negative except for miller sinus disease and dental caries. CXR negative for acute processes. CT head from today no change from previous. Discharge Data Allergies Allergy/AdvReac Type Severity Reaction Status Date / Time TOBACCO SMOKE Allergy HIVES AND Uncoded 02/02/23 19:46 RESPIRATORY DECLINE Consultations 02/02/23 21:13 Consult Neurology Routine Ordered Studies 02/02/23 17:24 CT head/brain wo con Stat 02/03/23 10:14 MR brain seizure wo/w con Urgent Discharge Plan Discharge Items Patient Disposition: Home - Self-Care Reason For Visit: SEUZURE MONITORING Discharge Diagnosis: seizure Activity: Resume your previous activity Non-emergency contact: Primary Care Provider Call non-emergency contact if: you have any medication questions Follow-up/Referrals: Rosalinda Alva MD [Primary Care Provider] - Diet: Carb Consistent or DM2 Addtl Attending Provider Instructions: recommend followup with PCP in 1 week follow-up in Neurology Clinic ([place] in 2-3 weeks). No driving until cleared by Neurology Pending Studies at Discharge: No Stand-Alone Forms: [facility] [employer], Smoking Cessation Medications and DC Order Prescriptions: New levetiracetam [Keppra] 500 mg tablet 500 mg PO BID Qty: 60 0RF Continued insulin glargine [Lantus Solostar U-100 Insulin] 100 unit/mL (3 mL) insulin pen 0 - 80 unit SUBCUT HS Apidra SoloStar U-100 Insulin 100 unit/mL insulin pen 1 sliding scale dose SUBCUT UD Rx Instructions: up to 100 units daily cimetidine 400 mg tablet 400 mg PO BID PRN (Reason: Heartburn) atorvastatin 20 mg tablet 20 mg PO DAILY amoxicillin-pot clavulanate 875-125 mg tablet 1 tab PO BID Qty: 20 0RF Rx Instructions: BEGIN 02/01/23 X 7 DAYS levothyroxine [Synthroid] 150 mcg tablet 150 mcg PO QAM Rx Instructions: MUST BE BRAND SPECIFIC Unknown Allergy Med 1 tab PO DAILY Discharge Orders: Discharge Order (Routine); Ordered 02/03/23 Ordered By: Horace Paulino/Other Patient Handouts: Managing Type 2 Diabetes Admission Data Admit Date/Time: 02/02/23 20:24 Attending Provider: Horace Mckoy Admit Provider: Ritesh Zafar Primary Care Provider: Rosalinda Alva Other Providers: Rojas Zhou Coding
== END 2023-02-03 18:37 | disposition home or self-care (01) | DRG 101 ==
LOC: ED 17:05 → EDINP 20:24 → SUATTDRO 20:24 → EDINP 21:13